=== PATIENT | female | born 1960 | race Two or more races ===

== ENCOUNTER → 2024-04-19 | Outpatient (CLI) | payer MEDICARE, MEDICAID, SELFPAY ==
--- NOTE | 2024-04-19 09:18 | XR_ITS ---
Examination: Left knee 2 views TECHNIQUE: Standing AP lateral left knee 2 views Exam date and time: April 19, 2024 0947 hours INDICATIONS: Knee pain 5 years. FINDINGS: Advanced narrowing medial joint space left knee Moderate osteoarthritis patellofemoral joint Small knee effusion No fracture Prominent osteopenia IMPRESSION: Advanced narrowing medial joint space left knee
== END | disposition home or self-care (01) ==
LOC: CDIM 09:02
PROVIDERS: PCP Physician Assistant; Referring Provider Orthopaedic Surgery; Visit Provider Orthopaedic Surgery
DX: M25.862 Other specified joint disorders, left knee (principal)
CPT/HCPCS: 73560

== ENCOUNTER 2024-05-07 15:55 | Inpatient (IN) | payer MEDICARE, MEDICAID, SELFPAY ==
--- NOTE | 2024-05-06 09:41 | EKG_ITS ---
[facility] Test Date: 2024-05-06 Pat Name: ALFRED DAVIDSON Department: Room: - Gender: Female Last Puller: SILVINO : 1960 Requested By: Juni Quinones Order Number: [id number] Reading MD: Juni Quinones Measurements Intervals [place] Rate: 60 P: 58 CA: 170 QRS: -2 QRSD: 96 T: 8 QT: 426 QTc: 426 Interpretive Statements SINUS RHYTHM POSSIBLE LEFT ATRIAL ENLARGEMENT [-0.1mV P WAVE IN V1/V2] SEPTAL MYOCARDIAL INFARCTION , PROBABLY OLD [40+ ms Q WAVE IN V1/V2] Compared to ECG 10/02/2023 11:33:07 Myocardial infarct finding now present T-wave abnormality no longer present /store/S0/[id number].pdf
[2024-05-06 09:45] VITALS: BMI 23.6
[2024-05-06 10:25] LABS: Basophils % (Auto) 0 % (0-2.5); Eosinophils # (Auto) 0.2 Thou/mm3 (0.0-0.5); Eosinophils % (Auto) 3 % (0-10); Hematocrit 37.8 % (36.0-46.0); Hemoglobin 13.4 g/dL (12.0-16.0); Immature Granulocytes % (Auto) 0 % (0-0); Immature Granulocytes Auto 0.02 Thou/mm3 (0.00-0.00); Lymphocytes # (Auto) 1.6 Thou/mm3 (1.0-4.8); Lymphocytes % (Auto) 28 % (10-50); Mean Corpuscular HGB Conc 35.4 g/dl (31.0-37.0); Mean Corpuscular Hemoglobin 31.2 pg (25.0-35.0); Mean Corpuscular Volume 88 fL (80-100); Monocytes # (Auto) 0.4 Thou/mm3 (0.0-0.8); Monocytes % (Auto) 7 % (0-12); Neutrophils # (Auto) 3.4 Thou/mm3 (1.8-7.7); Neutrophils % (Auto) 61 % (37-80); Nucleated Red Blood Cell % 0 /100 WBC (0); Platelet Count 287 Thou/mm3 (140-440); Red Blood Count 4.29 Miln/mm3 (4.00-5.20); White Blood Count 5.5 Thou/mm3 (3.6-11.0)
[2024-05-06 10:38] LABS: Partial Thromboplastin Time 27.2 Seconds (22.0-36.0); Prothrombin Time 10.9 Seconds (9.0-12.2)
[2024-05-06 10:43] LABS: Alanine Aminotransferase 16 U/L (10-49); Albumin/Globulin Ratio 2.1 (1.2-2.2); Alkaline Phosphatase 75 U/L (46-116); Anion Gap 10 (7-16); Aspartate Amino Transferase 26 U/L (0-34); BUN/Creatinine Ratio 21 Ratio (12-20); Bilirubin,Total 0.5 mg/dL (0.3-1.2); Blood Urea Nitrogen 17 mg/dL (9-23); Calcium 10.9 mg/dL (8.3-10.6); Calcium (Corrected) 10.9 mg/dL (8.5-10.1); Carbon Dioxide 25.4 mMol/L (20.0-31.0); Chloride 108 mMol/L (98-107); Creatinine (Component) 0.8 mg/dL (0.6-1.3); Estimated Creatinine Clearance 53.8 mL/min (>60); Globulin 2.4 gm/dL (2.3-3.5); Glucose 99 mg/dL (74-106); Osmolality,Calculated 286 (275-295); Potassium 4.2 mMol/L (3.4-5.1); Sodium 143 mMol/L (136-145); Total Protein 7.4 gm/dL (5.7-8.2); eGFR > 60 See Note
--- NOTE | 2024-05-06 13:35 | ESHP_ITS ---
RE: ALFRED DAVIDSON : 1960 DATE OF ADMISSION: 05/06/2024 HISTORY AND PHYSICAL: The patient came to my office on 05/06/2024 for detailed preop history and physical examination. HISTORY OF PRESENT COMPLAINT: The patient has got pain in the left knee joint. Pain is quite bad. The patient is unable to walk more than 1 or 2 block due to pain. Intensity of pain is graded 8 to 9/10. Quality of life and activities of daily living is affected. The patient is unable to sleep. X-ray confirms severe osteoarthritic changes of the left knee joint. PAST MEDICAL HISTORY: The patient has a history of high blood pressure. No history of diabetes mellitus, asthma, seizure, chest pain, myocardial infarction, or bleeding disorder. PAST SURGICAL HISTORY: Includes and two breast cyst removal. Besides that, the patient underwent a right total knee replacement in 09/2023. DRUG HISTORY: The patient is on: 1. Lisinopril. 2. Loratadine. 3. Fenofibrate. ALLERGIES: ALLERGIES TO PENICILLIN. FAMILY HISTORY AND SOCIAL HISTORY: The patient denies smoking, drinking, and is not working. PHYSICAL EXAMINATION: GENERAL: Normal-built lady. VITAL SIGNS: Pulse 78 per minute, blood pressure 136/84. NECK: Soft. Supple. No mass felt. Trachea is centrally placed. CARDIOVASCULAR SYSTEM: First and second heart sound normal. No murmur heard. RESPIRATORY SYSTEM: Bilateral vesicular breath sounds. CHEST: Clear. ABDOMEN: Soft. No mass felt. Bowel sounds present. BREASTS: Not indicated in this case. The patient is advised to see the family physician for regular examination. EXTREMITIES: Left knee examination revealed 2+ tenderness. Active range of motion 0 to 115 degrees of flexion. Genu varum deformity is present. The patient walks with a limb. Crepitus is present. Neurovascularly, it is intact. DIAGNOSTIC DATA: X-ray confirms significant osteoarthritis changes. ASSESSMENT AND PLAN: Since the patient is symptomatic, therefore, left total knee replacement was discussed and advised. Risks with anesthesia was explained and that includes, but not limited to reaction to anesthetic agents, cardiac arrest or rarely it might be fatal. Risk with operation includes infection and if that happens, the patient will need further surgical procedure. Other risks include delayed healing, wound dehiscence, etc. No guarantee is given regarding the outcome of the procedure and/or relief of symptoms. Possibility of blood transfusion was discussed as well. Risks with blood transfusion was discussed and that includes, but not limited to reaction to blood transfusion, possible infection with hepatitis B, C, and HIV. The patient stated that she would accept blood when it is absolutely necessary and I agree with that. Surgery is booked for 05/07/2024. Appropriate lab work done. DT: 12:24:19 TT: 13:33:00 Ref: [id number] - TID: [id number]
[2024-05-07] VITALS (23 sets, daily range): BP systolic 95–124; BP diastolic 55–74; PULSE 67–109; RESP 13–20; TEMP 36.2–36.7; O2SAT 93–100; BMI 23.4
--- NOTE | 2024-05-07 07:28 | SUR.PREOP ---
Patient expressed gratitude for prayer before their procedure.
--- NOTE | 2024-05-07 09:54 | PD.SUROPNT ---
Date of Procedure 05/07/24 Pre Op Diagnosis Severe DJD left knee joint Post Op Diagnosis Same Procedure Left total knee replacement Femur size 7 narrow Tibial baseplate size D Polyethylene size 12 mm Patella size 26 mm Findings Patient has severe osteoarthritic changes. The medial femoral condyle was completely denuded of cartilage. The medial tibial plateau was also denuded of cartilage. Patella has significant osteophytes. The lateral compartment also showed significant osteoarthritic changes. Patient has significant genu varum deformity Procedure Description The patient was given a [spinal] anesthesia. Once satisfactory anesthesia was achieved a tourniquet was placed on left upper thigh. Intravenous antibiotics was given at the time of anesthesia. The patient was thoroughly prepped and draped. After using Esmarch the tourniquet pressure was raised to 350 mmHg. A skin incision was made 2 inches proximal to the upper pole of patella going as far down as up to the medial aspect of the tibial tuberosity. The skin was raised as a flap on the site. The bleeding vessels were electrocoagulated as and when encountered. The quadriceps tendon, medial border of the patella and the patellar tendon along the medial aspect of the tibial tuberosity was incised and reflected. The patellar tendon was reflected as much as needed to melecio the patella. The soft tissue from the upper medial border of the tibia was reflected to correct her genu varum deformity. The knee joint was flexed. The anterior cruciate ligament, medial and lateral meniscus were excised. Next para drill hole was made to the inferior surface of the femur. Following that a swab was placed. A 4?? of abduction was already put into it. Following that a cutting block for the inferior cut of the femur was placed and nicely secured with the pins. The swordt was removed. The inferior cut of the femur was made and after that the cutting block was removed. Following that a sizer was placed. A decision was made to use size [6] femur implant. 2 drill holes each in 3?? of external rotation were made. The sizer was removed. Size [6] cutting block was placed. Following that anterior, posterior, anterior chamfer and posterior chamfer cuts were made. The cutting block was removed. The knee joint was extended and a 10 mm trial plastic was removed and the intended level of the tibial cut was marked. The knee joint was flexed. With the help of double-pronged the tibia was displaced anteriorly. An extramedullary jig for the cutting block placement of the tibia was placed. The mechanical axis of the zig was parallel to the mechanical axis of the tibia. Following that the tibial cutting block was placed at the desired level and was secured nicely with the help of pins. Following that the tibial cut was made. In this case was posterior cruciate ligament was saved. The cutting block was removed. The spacer was placed and a decision was made to use size [12] polyethylene. The sizing of the tibial baseplate was done and the decision was made to use size [D] tibial baseplate. Following that size [6] trial femur implant was placed in lateralized position and size [D] tibial tibial baseplate along with size [12] plastic was placed in knee joint was flexed and extended quite a few times and tibial baseplate was allowed to sit wherever it wanted to. The markings were made for the tibial baseplate. 2 drill holes were made for the inferior surface of the femur trial implant. The trial implant was removed and tibial baseplate was placed again with the help of pins. The collar was placed and superior hole was drilled. Following that a fin cut was made. The patella was reamed with [26] mm diameter reamer. [12] mm thickness was left. A collar was placed and 3 drill holes were made. All the trial implant was placed and patellar tracking was checked and found to be good. Lateral release was done at this point. The wound was irrigated with antibiotic solution every 4-5 minutes. Now the power lavage antibiotic solution was used. The knee joint was flexed. The bone were made dry. The cement was mixed. With the help of cement the tibial baseplate was mounted. The excess cement was removed. The femur implant was placed and trial plastic was placed and knee joint was extended. Patella was also mounted with the help of cementing. Excess cement was removed. Osteophytes from the patella was removed at this time. Once the cement was set the tourniquet pressure was released. The bleeding vessels were electrocoagulated. The trial plastic was removed and 12 mm ultra high molecular weight polyethylene was placed. Closure . The quadriceps tendon, medial border of the patella and patellar tendon was closed with the help of 1-0 Vicryl in an interrupted fashion. The subcutaneous tissue was closed with 2-0 Vicryl in an interrupted fashion. The skin was closed with blayne. The wound was cleaned with hydrogen proximal solution and a sterile dressing was applied. Patient tolerated procedure very well. Estimated blood loss [50] mL. Prognosis in this case is good. This was taken to the recovery room in good condition. Anesthesia GETA and other Pathology / specimen None Estimated Blood Loss 50 Surgeon Juni Murray MD Surgical Staff Operation Date: 05/07/24 08:00 Case Staff Anesthesiologist: Elia Griggs RNtire debeader: Nedra Elizalde
--- NOTE | 2024-05-07 10:23 | SUR.PHASEI ---
1023: received pt from OR via bed. received report from Dr. Griggs and Roger RN. pt alert and oriented x3. denies any pain or discomfort. no s/s of resp. distress or discomfort. dressing to left knee clean, dry and intact. positive CMS. cap refill to left toes less than 2 seconds. able to wiggle toes when ask. positive pulse.
--- NOTE | 2024-05-07 10:51 | SUR.PHASEI ---
1051: pt requested water to drink, given water at this time and she tolerated well.
--- NOTE | 2024-05-07 10:55 | SUR.PHASEII ---
1055: at the bedside. pt alert and oriented. no s/s of resp. distress or discomfort. dressing to left knee clean, dry and intact. no bleeding or discharge noted. positive CMS: positive pulse, able to wiggle toes when ask, cap refill less than 2 seconds.
--- NOTE | 2024-05-07 10:59 | XR_ITS ---
Examination: Left knee 2 views Technique one AP lateral left knee 2 views Exam date 9: May 07, 2024 1003 hours INDICATIONS: Postop knee replacement FINDINGS: Prominent osteopenia. Total left knee arthroplasty. Satisfactory alignment. No fracture. IMPRESSION: Total left knee arthroplasty with satisfactory alignment
--- NOTE | 2024-05-07 11:06 | SUR.PHASEI ---
1106: X-ray completed at this time.
--- NOTE | 2024-05-07 11:10 | SUR.PHASEII ---
1110: pt able to drink water without any difficulties.
--- NOTE | 2024-05-07 13:45 | SUR.PHASEII ---
1345: Report given to BRAULIO Morillo.
--- NOTE | 2024-05-07 13:45 | SUR.PHASEII ---
1345: pt alert and oriented. no c/o pain or discomfort. no s/s of resp. distress or discomfort. dressing to left knee clean, dry and intact. no bleeding or discharge noted from dressing. positive CMS: able to wiggle toes when ask, cap refill less than 2 seconds and positive pulse. able to tolerate fluid well.
--- NOTE | 2024-05-07 13:45 | SUR.PHASEII ---
assuming care of pt at this time. received report from Rich RN. pt asleep but responds to voice, breathing unlabored on 2l nc. v/s stable. pt dressing to left lower extremity cdi.
[2024-05-07] MEDS: ONDANSETRON INJ 2 MG/ML INJ 2 ML 4 MG IV (15:00)
[2024-05-07] MEDS: METOCLOPRAMIDE INJ 5 MG/ML VIAL 2 ML 10 MG IVP (15:10)
--- NOTE | 2024-05-07 15:30 | PC.NURSE ---
Pt up from surgery. Dressing to left knee CDI, stable vitals
--- NOTE | 2024-05-07 15:30 | SUR.PHASEII ---
pt asleep but responds to voice, breathing unlabored on 2l nc. v/s stable. pt dressing to left lower extremity cdi. report called to Shasha RAMSEY. pt will be transferred to room at this time.
--- NOTE | 2024-05-07 16:02 | PD.ANESPROG ---
Documentation for date of: 05/07/24 ANESTHESIA NOTE: Patient had GETA and L femoral nerve block for L TKA this morning. She did well intra-op. Elia Griggs MD Anesthesia Progress Note Progress Note Most recent Vital Signs: Last Vital Signs Temp 97.2 F 05/07/24 15:15 Pulse 78 05/07/24 15:15 Resp 16 05/07/24 15:15 BP 110/69 05/07/24 15:15 Pulse Ox 95 05/07/24 15:15 O2 Flow Rate 2 05/07/24 15:15
[2024-05-07] MEDS: ceFAZolin/D5W 1 GM IVPB 1 GM/50 ML BAG IV ×2 (16:29→23:50)
[2024-05-08] VITALS (8 sets, daily range): BP systolic 94–114; BP diastolic 50–68; PULSE 57–96; RESP 16–19; TEMP 36.2–37.6; O2SAT 93–99
[2024-05-08] MEDS: MORPHINE SULF INJ 10 MG/ML VIAL 4 MG IV ×2 (02:53→09:42)
[2024-05-08 05:44] LABS: Basophils % (Auto) 0 % (0-2.5); Eosinophils % (Auto) 0 % (0-10); Hematocrit 26.9 % (36.0-46.0); Hemoglobin 9.4 g/dL (12.0-16.0); Immature Granulocytes % (Auto) 0 % (0-0); Immature Granulocytes Auto 0.03 Thou/mm3 (0.00-0.00); Lymphocytes # (Auto) 1.5 Thou/mm3 (1.0-4.8); Lymphocytes % (Auto) 15 % (10-50); Mean Corpuscular HGB Conc 34.9 g/dl (31.0-37.0); Mean Corpuscular Hemoglobin 30.8 pg (25.0-35.0); Mean Corpuscular Volume 88 fL (80-100); Monocytes # (Auto) 0.9 Thou/mm3 (0.0-0.8); Monocytes % (Auto) 10 % (0-12); Neutrophils # (Auto) 7.1 Thou/mm3 (1.8-7.7); Neutrophils % (Auto) 74 % (37-80); Nucleated Red Blood Cell % 0 /100 WBC (0); Platelet Count 193 Thou/mm3 (140-440); RDW Standard Deviation 41.9 fL (36.4-46.3); Red Blood Count 3.05 Miln/mm3 (4.00-5.20); White Blood Count 9.5 Thou/mm3 (3.6-11.0)
--- NOTE | 2024-05-08 15:03 | PD.RESCONSUL ---
HPI Data of Consult Requesting Physician: Juni Murray MD Attending Provider: Juni Murray MD Primary Care Provider: Hortencia Womack PA-C Consult Narrative History of present illness: Patient is a 64 year old [place] speaking female with past medical history significant for hypertension and Hypertriglyceridemia. Patient is s/p total left knee replaced on 05/08/[address] Murray who was referred to the medicine team for further management patient chronic medical conditions like hypertension and hypertriglyceridemia . Patient had patient underwent in right knee replacement and was presenting the same symptoms on her left knee for many years, she stated that she underwent multiple treatments without improvement.patient stated that on her last surgery back in September has very good result and that she is feeling very well after it for which she decided to proceed with a left knee replacement. Patient said that she is feeling otherwise that she is in a lot of pain 8 out of 10. She denied chest pain, palpitations, dizziness, headache, chest pain or any other associated symptoms different admission above. Labs showed Hgb: 9.4, CMP was unremarkable with normal creatinine. Only medications patient takes includes: Lisinopril, Fenofibrate, and Loratidine. She endorsed to be allergic to penicillins. cc:: cc: Juni Murray MD Review of Systems Review of Systems Systems Reviewed: All systems reviewed, normal except as documented Exam Vital Signs Temp Pulse Resp BP Pulse Ox O2 Del Method O2 Flow Rate 97.4 F 82 16 114/62 98 Nasal Cannula 2 05/08/24 12:05/08/24 12:05/08/24 12:05/08/24 12:05/08/24 12:05/08/24 12:05/08/24 12:00 Narrative Exam General: No acute distress, well appearing, alert, interactive. HEENT: NC/AT, PERRL, EOMI, Good conjugate gaze, moist mucous membranes, oropharynx clear. Neck: Supple, No masses, No adenopathy, carotid pulse 2+ bilaterally without bruits, No JVD, normal range of motion. Chest: Symmetrical, atraumatic, and with equal expansion , Nontender on palpation no deformity and no crepitus. CVS: S1 and S2 present, Regular rate and rhythm, No murmurs, rubs or gallops perceived during auscultation. Lungs: Normal respiratory effort, CTAB, no wheezing, rhonchi or rales perceived during auscultation, No intercostal or subcostal retraction. Abdomen : Soft, no tenderness to palpation, no guarding ,no rebound, +BS, no organomegaly. Extremities: Left knee incision clean no hematoma noted wrapped in bandage, warm well perfused, strength and sensation intact, cap refill less than 2, +2 dp equal bilaterally, able to move all 4 extremities spontaneously. Skin: Left knee surgical incision clean, no expanding hematoma noted,. no rashes, no lesions, no erythema or jaundice noted Neuro: AOx4, reflex symmetric and sensation normal, no focal neurologic deficits noted, GCS 15 Psych: Appropriate mood and affect. Results Labs 05/09/24 04:37 05/09/24 04:37 Labs: Short CBC 05/08/24 Range/Units 05:18 WBC 9.5 D (3.6-11.0) Thou/mm3 Hgb 9.4 L D (12.0-16.0) g/dL Hct 26.9 L D (36.0-46.0) % Plt Count 193 D (140-440) Thou/mm3 Quality Measures Quality Measures VTE prophylaxis Advance care planning discussed with:: patient Medications Home Medications and Allergies Home Medications ?Medication ?Instructions ?Recorded ?Confirmed ?Type fenofibrate nanocrystallized 145 145 mg PO QDAY 10/02/23 05/07/24 History mg tablet lisinopril 5 mg tablet 5 mg PO QDAY 10/02/23 05/07/24 History Allergies Allergy/AdvReac Type Severity Reaction Status Date / Time Penicillins Allergy Mild Rash Verified 05/07/24 12:50 Visit Medications Aspirin (Aspirin Ec 81 Mg Tabec) 81 mg PO BID IFTIKHAR Stop: 06/07/24 20:59 Morphine Sulfate (Morphine Sulf Inj 10 Mg/Ml Vial) 4 mg IV Q4HR PRN PRN Reason: PAIN Stop: 05/12/24 15:54 Ondansetron HCl (Ondansetron Inj 2 Mg/Ml Inj 2 Ml) 4 mg IV Q6HR PRN PRN Reason: NAUSEA OR VOMITING Stop: 06/06/24 15:54 Discontinued Medications Fentanyl Citrate (Fentanyl Cit Inj 50 Mcg/Ml Amp 2ml) 50 mcg IV Q5MIN PRN PRN Reason: PAIN SCALE 4-10(Mod-Sev Stop: 05/07/24 10:59 Hydralazine HCl (Hydralazine Inj 20 Mg/Ml Vial) 5 mg IV Q20MIN PRN PRN Reason: SEE COMMENTS Stop: 05/07/24 10:59 Hydromorphone HCl (Hydromorphone Inj 2 Mg/Ml Vial) 0.5 mg IV Q10MIN PRN PRN Reason: PAIN SCALE 4-10(Mod-Sev Stop: 05/07/24 10:59 Cefazolin Sodium (Ancef 2gm Ivpb) 2 gm in 100 mls @ 100 mls/hr IV X1 ONE Stop: 05/07/24 06:59 Last Admin: 05/07/24 13:49 Dose: Not Given Lactated Ringer's (Lactated Ringers) 1,000 mls @ 20 mls/hr IV .Q24H ONE Stop: 05/08/24 05:59 Last Admin: 05/07/24 15:59 Dose: Not Given Cefazolin Sodium/Dextrose (Ancef Ivpb) 1 gm in 50 mls @ 50 mls/hr IV Q8H IFTIKHAR Stop: 05/08/24 00:54 Last Admin: 05/07/24 23:50 Dose: 50 mls/hr Meperidine HCl (Meperidine Inj 50 Mg/Ml Vial) 12.5 mg IV Q5M PRN PRN Reason: SHIVERING Stop: 05/07/24 10:59 Metoclopramide HCl (Metoclopramide Inj 5 Mg/Ml Vial 2 Ml) 10 mg IVP X1 PRN; Protocol PRN Reason: NAUSEA OR VOMITING Stop: 05/07/24 11:00 Last Admin: 05/07/24 15:10 Dose: 10 mg Midazolam HCl (Midazolam Inj 1 Mg/Ml Vial 2 Ml) 1 mg IV Q5MIN PRN PRN Reason: ANXIETY Stop: 05/07/24 10:59 Morphine Sulfate (Morphine Sulf Inj 10 Mg/Ml Vial) 4 mg IV Q4HR PRN PRN Reason: PAIN Stop: 05/12/24 15:54 Last Admin: 05/08/24 09:42 Dose: 4 mg Ondansetron HCl (Ondansetron Inj 2 Mg/Ml Inj 2 Ml) 4 mg IV X1 PRN PRN Reason: NAUSEA OR VOMITING Stop: 05/07/24 10:59 Last Admin: 05/07/24 15:00 Dose: 4 mg Assessment & Plan Plan Patient is a 64 year old [place] speaking female with past medical history significant for hypertension and hypertriglyceridemia. Patient is s/p total left knee replacement on 05/08/24 who was referred to the medicine team for further management of chronic medical conditions. #S/p Total left knee arthroplasty Patient is s/p total left knee arthroplasty secondary to osteoarthritis Left knee x-ray possible total left knee arthroplasty, Satisfactory alignment without fracture Plan: -IV morphine 2 mg every 4 hours as needed -[place] p.o. every 6 hours as needed -IV ondansetron every 6 hours as needed for nausea and vomiting -Aspirin 81 mg p.o. twice daily per orthopedic surgery #Acute loss anemia Secondary to left knee arthroplasty Hemoglobin 9.4, baseline hemoglobin around 13 -Transfuse if hemoglobin less than 7 -Follow-up CBC #Hypertension Patient has a history of HTN Otherwise blood pressure has been on the soft side for which we will hold for today blood pressure medications Plan: -Hold patient home lisinopril 5mg daily #Hypertriglyceridemia Patient has a history of Hypertriglyceridemia Plan: -Fenofibrate 145mg PO QDAY Disposition: MedSurg Fluids and Diet: Regular diet DVT prophylaxis: Aspirin 81 mg p.o. twice daily GI prophylaxis: None [place]: None CODE STATUS: Full code Patient discussed with my attending Dr Jazmyne Sun MD PGY-3 Disclaimer: Despite multiple revisions, due to the dictation software being used, the document bellow may not be free of grammatical errors including phonetic/typographic errors. However, this does not deter from our commitment to providing health care in the patient's best interest in mind. Attending Provider Attestation/Addendum I have examined the patient, reviewed labs and imaging findings, discussed the case with the resident(s), and reviewed entered orders. I agree with the plan of care as outlined in this note. Dr. Jazmyne MD
[2024-05-08] MEDS: ASPIRIN EC 81 MG TABEC PO (20:47)
[2024-05-08] MEDS: HYDROcodone/APAP 5/325 TABLET 1 TAB PO (22:30)
[2024-05-09] VITALS (7 sets, daily range): BP systolic 107–127; BP diastolic 63–79; PULSE 80–121; RESP 16–20; TEMP 36.6–36.9; O2SAT 92–99
[2024-05-09 06:17] LABS: Basophils % (Auto) 0 % (0-2.5); Eosinophils # (Auto) 0.1 Thou/mm3 (0.0-0.5); Eosinophils % (Auto) 1 % (0-10); Hematocrit 28.8 % (36.0-46.0); Hemoglobin 9.9 g/dL (12.0-16.0); Immature Granulocytes % (Auto) 0 % (0-0); Immature Granulocytes Auto 0.02 Thou/mm3 (0.00-0.00); Lymphocytes # (Auto) 1.2 Thou/mm3 (1.0-4.8); Lymphocytes % (Auto) 14 % (10-50); Mean Corpuscular HGB Conc 34.4 g/dl (31.0-37.0); Mean Corpuscular Hemoglobin 30.9 pg (25.0-35.0); Mean Corpuscular Volume 90 fL (80-100); Monocytes # (Auto) 0.8 Thou/mm3 (0.0-0.8); Monocytes % (Auto) 9 % (0-12); Neutrophils # (Auto) 6.6 Thou/mm3 (1.8-7.7); Neutrophils % (Auto) 76 % (37-80); Nucleated Red Blood Cell % 0 /100 WBC (0); Platelet Count 188 Thou/mm3 (140-440); RDW Standard Deviation 41.9 fL (36.4-46.3); White Blood Count 8.8 Thou/mm3 (3.6-11.0)
[2024-05-09 06:52] LABS: Alanine Aminotransferase 12 U/L (10-49); Albumin, Serum 3.8 gm/dL (3.4-4.8); Alkaline Phosphatase 48 U/L (46-116); Anion Gap 8 (7-16); Aspartate Amino Transferase 18 U/L (0-34); BUN/Creatinine Ratio 11 Ratio (12-20); Bilirubin,Total 0.8 mg/dL (0.3-1.2); Blood Urea Nitrogen 8 mg/dL (9-23); Calcium 9.4 mg/dL (8.3-10.6); Calcium (Corrected) 9.6 mg/dL (8.5-10.1); Carbon Dioxide 26.9 mMol/L (20.0-31.0); Chloride 103 mMol/L (98-107); Creatinine (Component) 0.7 mg/dL (0.6-1.3); Estimated Creatinine Clearance 59.4 mL/min (>60); Globulin 1.9 gm/dL (2.3-3.5); Glucose 112 mg/dL (74-106); Osmolality,Calculated 274 (275-295); Phosphorous 1.6 mg/dL (2.4-5.1); Potassium 3.5 mMol/L (3.4-5.1); Sodium 138 mMol/L (136-145); Total Protein 5.7 gm/dL (5.7-8.2); eGFR > 60 See Note
--- NOTE | 2024-05-09 07:08 | PD.RESPRO ---
Documentation for date of: 05/09/24 Subjective Subjective Interval history: No overnight acute events This morning the bedside patient is AOx4, respond to question properly, tolerating p.o., states that her pain still 8 out of 10 otherwise that she worked with physical therapy. Pending orthopedic surgery recommendations, and if patient remains stable we will anticipate discharge in next 24 hours Exam Vital Signs Temp Pulse Resp BP Pulse Ox O2 Del Method O2 Flow Rate 98.3 F 83 20 124/67 97 Nasal Cannula 2 05/09/24 04:00 05/09/24 04:00 05/09/24 04:00 05/09/24 04:00 05/09/24 04:00 05/09/24 04:00 05/09/24 04:00 Narrative Exam General: No acute distress, well appearing, alert, interactive. HEENT: NC/AT, PERRL, EOMI, Good conjugate gaze, moist mucous membranes, oropharynx clear. Neck: Supple, No masses, No adenopathy, carotid pulse 2+ bilaterally without bruits, No JVD, normal range of motion. Chest: Symmetrical, atraumatic, and with equal expansion , Nontender on palpation no deformity and no crepitus. CVS: S1 and S2 present, Regular rate and rhythm, No murmurs, rubs or gallops perceived during auscultation. Lungs: Normal respiratory effort, CTAB, no wheezing, rhonchi or rales perceived during auscultation, No intercostal or subcostal retraction. Abdomen : Soft, no tenderness to palpation, no guarding ,no rebound, +BS, no organomegaly. Extremities: Left knee incision clean no hematoma noted wrapped in bandage, warm well perfused, strength and sensation intact, cap refill less than 2, +2 dp equal bilaterally, able to move all 4 extremities spontaneously. Skin: Left knee surgical incision clean, no expanding hematoma noted,. no rashes, no lesions, no erythema or jaundice noted Neuro: AOx4, reflex symmetric and sensation normal, no focal neurologic deficits noted, GCS 15 Psych: Appropriate mood and affect. Objective Labs 05/09/24 04:37 05/09/24 04:37 Labs: Laboratory Results - last 24 hr 05/09/24 04:37 WBC 8.8 RBC 3.20 L Hgb 9.9 L Hct 28.8 L MCV 90 MCH 30.9 MCHC 34.4 RDW Std Deviation 41.9 Plt Count 188 Neut % (Auto) 76 Lymph % (Auto) 14 Trinity % (Auto) 9 Eos % (Auto) 1 Baso % (Auto) 0 Neut # (Auto) 6.6 Lymph # (Auto) 1.2 Trinity # (Auto) 0.8 Eos # (Auto) 0.1 Baso # (Auto) 0.0 Immature Gran # (Auto) 0.02 H Absolute Nucleated RBC 0.00 Immature Gran % 0 Nucleated RBC % 0 Sodium 138 Potassium 3.5 D Chloride 103 Carbon Dioxide 26.9 Anion Gap 8 BUN 8 L Creatinine 0.7 Estim Creat Clear Calc 59.4 L eGFR > 60 BUN/Creatinine Ratio 11 L Glucose 112 H Calculated Osmolality 274 L Calcium 9.4 D Corrected Calcium 9.6 Phosphorus 1.6 L Magnesium 2.0 Total Bilirubin 0.8 AST 18 ALT 12 Alkaline Phosphatase 48 D Total Protein 5.7 Albumin 3.8 D Globulin 1.9 L Albumin/Globulin Ratio 2.0 Quality Measures Quality Measures VTE prophylaxis Assessment & Plan Assessment Current Active Medications: Generic Name Dose Route Start Last Admin Trade Name Freq PRN Reason Stop Dose Admin Hydrocodone Bitart/Acetaminophen 1 tab 05/08/24 16:01 05/08/24 22:30 Hydrocodone/Apap 5/325 Tablet PO 05/13/24 16:00 1 tab Q6HR PRN Administration PAIN SCALE 4-6 (Moderate Aspirin 81 mg 05/08/24 21:00 05/08/24 20:47 Aspirin Ec 81 Mg Tabec PO 06/07/24 20:59 81 mg BID IFTIKHAR Administration Fenofibrate 145 mg 05/09/24 09:00 Fenofibrate 145 Mg Tablet (Non-Formulary) PO 06/08/24 08:59 QDAY IFTIKHAR Morphine Sulfate 2 mg 05/08/24 16:00 Morphine Sulf Inj 10 Mg/Ml Vial IV 05/12/24 15:54 Q4HR PRN PAIN SCALE 7-10 (Severe Ondansetron HCl 4 mg 05/07/24 15:55 Ondansetron Inj 2 Mg/Ml Inj 2 Ml IV 06/06/24 15:54 Q6HR PRN NAUSEA OR VOMITING Plan Patient is a 64 year old [place]ayan speaking female with past medical history significant for hypertension and hypertriglyceridemia. Patient is s/p total left knee replacement on 05/08/24 who was referred to the medicine team for further management of chronic medical conditions. #S/p Total left knee arthroplasty Patient is s/p total left knee arthroplasty secondary to osteoarthritis Left knee x-ray possible total left knee arthroplasty, Satisfactory alignment without fracture Plan: -IV morphine 2 mg every 4 hours as needed -Campbell p.o. every 6 hours as needed -IV ondansetron every 6 hours as needed for nausea and vomiting -Aspirin 81 mg p.o. twice daily per orthopedic surgery #Acute loss anemia Secondary to left knee arthroplasty Hemoglobin 9.4, baseline hemoglobin around 13 -Transfuse if hemoglobin less than 7 -Follow-up CBC #Hypertension Patient has a history of HTN Otherwise blood pressure has been on the soft side for which we will hold for today blood pressure medications Plan: -Resume patient home lisinopril 5mg daily starting tomorrow #Hypertriglyceridemia Patient has a history of Hypertriglyceridemia Plan: -Fenofibrate 145mg PO QDAY Disposition: MedSurg Fluids and Diet: Regular diet DVT prophylaxis: Aspirin 81 mg p.o. twice daily GI prophylaxis: None Cuellar: None CODE STATUS: Full code Patient discussed with my attending Dr Jazmyne Sun MD PGY-3 Disclaimer: Despite multiple revisions, due to the dictation software being used, the document bellow may not be free of grammatical errors including phonetic/typographic errors. However, this does not deter from our commitment to providing health care in the patient's best interest in mind.
[2024-05-09] MEDS: ASPIRIN EC 81 MG TABEC PO (09:08)
[2024-05-09] MEDS: HYDROcodone/APAP 5/325 TABLET 1 TAB PO (09:08)
--- NOTE | 2024-05-09 12:34 | ESDS_ITS ---
Planned Discharge Date 05/09/24 DS: Providers Provider Primary care physician: Hortencia Womack PA-C Attending Provider on Admission: Juni Murray MD Consults: 05/08/24 09:50 Referral Physical Therapy Routine Comment: PT to mobilize. Both legs full weight bear . Physician Instructions: Mobilize full weight bearing 05/08/24 14:14 Consult to Adult Hospitalist Routine Comment: medical consult Consulting Provider: Curtis Samano Attending Provider on DC: Yanique Sun MD Discharging Provider: Yanique Sun MD DS: Diagnosis Problem List Completed Was Problem List Reviewed/Reconciled?: Yes Hospital Course Hospital Course Hospital course: 64-year-old woman with past medical history of hypertension, hyperlipidemia who was admitted by orthopedic surgery for elective total left knee replacement on 05/07/[address] Murray. Internal medicine was consulted for management of chronical medical conditions like hypertension and hypertriglyceridemia.Patient home medication were resumed during hospital stay patient patient was hemodynamically stable, tolerating p.o. worked with physical therapy and was able to stand up, patient pain has been well-controlled, CMP and hemoglobin has been stable. Per orthopedic surgery recommendations patient can be discharged home and will need to follow-up 2 days after discharge with Dr. Murray as an outpatient. Patient will be discharged home with: All questions were answered recommendation were given, to come at the ED if pain become worse or symptoms are not improved. Patient will need to follow-up with Dr. Murray 2 days after discharge Patient will be discharged with: ? Aspirin 81 mg p.o. twice daily ? Hydrocodone?acetaminophen 10-325 mg p.o. 1 tablet every 6 hours as needed for pain 7-10 for 3 more days ? Continue medications ? Continue physical therapy #S/p Total left knee arthroplasty day 2 #Acute loss anemia improving #Hypertension #Hypertriglyceridemia Patient discussed with my attending Dr Cathie Sun MD PGY-3 Disclaimer: Despite multiple revisions, due to the dictation software being used, the document bellow may not be free of grammatical errors including phonetic/typographic errors. However, this does not deter from our commitment to providing health care in the patient's best interest in mind. Time Spent with Patient Time attestation: Total time spent providing and/or coordinating discharge services: Time spent: Greater than 30 minutes Quality: VTE Deep Vein Thrombosis/Pulmonary Embolism Present on Admission: No Exam Vital Signs Temp Pulse Resp BP Pulse Ox O2 Del Method O2 Flow Rate 98.5 F 88 16 118/73 98 Nasal Cannula 2 05/09/24 12:00 05/09/24 12:00 05/09/24 12:00 05/09/24 12:00 05/09/24 12:00 05/09/24 12:00 05/09/24 12:00 Narrative Exam General: No acute distress, well appearing, alert, interactive. HEENT: NC/AT, PERRL, EOMI, Good conjugate gaze, moist mucous membranes, oropharynx clear. Neck: Supple, No masses, No adenopathy, carotid pulse 2+ bilaterally without bruits, No JVD, normal range of motion. Chest: Symmetrical, atraumatic, and with equal expansion , Nontender on palpation no deformity and no crepitus. CVS: S1 and S2 present, Regular rate and rhythm, No murmurs, rubs or gallops perceived during auscultation. Lungs: Normal respiratory effort, CTAB, no wheezing, rhonchi or rales perceived during auscultation, No intercostal or subcostal retraction. Abdomen : Soft, no tenderness to palpation, no guarding ,no rebound, +BS, no organomegaly. Extremities: Left knee incision clean no hematoma noted wrapped in bandage, warm well perfused, strength and sensation intact, cap refill less than 2, +2 dp equal bilaterally, able to move all 4 extremities spontaneously. Skin: Left knee surgical incision clean, no expanding hematoma noted,. no rashes, no lesions, no erythema or jaundice noted Neuro: AOx4, reflex symmetric and sensation normal, no focal neurologic deficits noted, GCS 15 Psych: Appropriate mood and affect. Discharge Plan Plan Patient Disposition: HOME (Self Care) Patient condition on transfer: Stable Health Concerns: All questions were answered recommendation were given, to come at the ED if pain become worse or symptoms are not improved. Patient will need to follow-up with Dr. Murray 2 days after discharge Patient will be discharged with: ? Aspirin 81 mg p.o. twice daily ? Hydrocodone?acetaminophen 10-325 mg p.o. 1 tablet every 6 hours as needed for pain 7-10 for 3 more days ? Continue medications ? Continue physical therapy Prescriptions/Referrals Prescriptions/Med Rec: New aspirin [Ecotrin Low Strength] 81 mg Tablet,Delayed Release (Dr/Ec) 81 mg PO BID 30 Days Qty: 60 0RF hydrocodone-acetaminophen 10-325 mg tablet 1 tab PO Q6H MDD 4 tablets PRN (Reason: pain) 3 Days Qty: 12 0RF Continued lisinopril 5 mg Tablet 5 mg PO QDAY fenofibrate nanocrystallized 145 mg Tablet 145 mg PO QDAY Referrals: Hortencia Womack PA-C [Primary Care Provider] - Patient/Caregiver Discharge Instructions Discharge Activity: as per physical therapy Other Discharge Activity Instructions:: El paciente deber? realizar un seguimiento con el Dr. Murray 2 d?as despu?s del susan. El paciente recibir? el susan con: ? Aspirina 81 mg por v?a oral dos veces al d?a ? H[place]odona-paracetamol 10-325 mg por v?a oral, 1 comprimido cada 6 horas seg? n sea necesario para el dolor, 7-10 d?as joel 3 d?as m?s ? Continuar con la medicaci?n ? Continuar con la fisioterapia Print Language: Luxembourgish Stand Alone Forms: Danay Award Info., Patient Portal Info Letter Discharge Order Discharge Orders: Discharge (Routine); Ordered 05/09/24 Ordered By: Yanique Sun Quality Discharge Quality Measures VTE prophylaxis Attestestation MD Attestation I have examined the patient, reviewed labs and imaging findings, discussed the case with the resident(s), and reviewed entered orders. I agree with the plan of care as outlined in this note. Time Spent: [address] Jazmyne MD
--- NOTE | 2024-05-09 12:54 | PC.PT ---
Patient is safe to ambulate to the bathroom and in the conte with a FWW and 1 staff assist. RN made aware.
== END 2024-05-09 14:35 | disposition home or self-care (01) | DRG 470 ==
LOC: S3SX 05-09 12:23
PROVIDERS: Anesthesiology; Student in an Organized Health Care Education/Training Program; Admitting Provider Orthopaedic Surgery; PCP Physician Assistant; Referring Provider Orthopaedic Surgery; Visit Provider Orthopaedic Surgery
PROC: 0SRD0J9 Replacement of Left Knee Joint with Synthetic Substitute, Cemented, Open Approach (ICD-10-PCS; principal; 2024-05-07 08:00)
DX: M17.12 Unilateral primary osteoarthritis, left knee (principal); D62 Acute posthemorrhagic anemia; E78.1 Pure hyperglyceridemia; I10 Essential (primary) hypertension; Z88.0 Allergy status to penicillin; Z79.82 Long term (current) use of aspirin; Z96.651 Presence of right artificial knee joint
CPT/HCPCS: 36415; 73560; 80053; 83735; 84100; 85025; 85610; 85730; 86850; 86900; 86901; 86923; 87081; 93005; 97161; A4217; C1713; C1776; J0131; J0689; J0690; J1100; J1580; J2250; J2270; J2371; J2405; J2704; J2765; J2795; J3010; J3490; A9270